=== PATIENT | male | born 2000 | race Caucasian/White ===

== ENCOUNTER 2019-10-15 11:47 | Observation (INO) ==
--- NOTE | 2019-10-15 12:55 | Emergency Department Note ---
ED Disposition Clinical Impression: Spontaneous pneumothorax Disposition: Admitted as Observation Condition on Discharge: Good Referrals: Dre Hdz MD [Primary Care Provider] - - Critical Care Critical Care Time: No Attestation: On 10/15/19, the high probability of a clinically significant, sudden or life threatening deterioration of the following system(s) required my full and direct attention, intervention and personal management. The time I documented below is in addition to time spent performing reported procedures but includes the following listed in this critical care notation. Medical Decision Making - Chi Inquiry Pt receiving controlled substance: No Vital Signs: 10/15/19 11:48 10/15/19 12:28 Temperature 98.0 F 97.8 F Temperature Source Oral Temporal Artery Scan Pulse Rate [Right Brachial] 95 H 65 Respiratory Rate 19 18 Blood Pressure [Right Arm] 112/70 105/50 L Blood Pressure Mean [Right Arm] 84 68 Blood Pressure Source [Right Arm] Automatic Cuff Automatic Cuff Blood Pressure Position [Right Arm] Sitting Sitting 02 Sat by Pulse Oximetry 100 100 Oxygen Delivery Method Room Air Room Air - Physician Consults Physician Consulted: Julee Time: 13:10 Reason -: Admission, Surgical Eval/Care Comment/Response: Discussed case. Patient is asymptomatic with normal vital signs, pulse ox 100%. X-ray shows very slight increase in the size of the pneumothorax versus difference in technique, slightly less inspiration on today's film. Dr. Ladd requests admission for observation, 6 hours of nonrebreather oxygen, the nasal cannula oxygen, repeat chest x-ray in the morning. General Adult HPI - General Chief complaint: Recheck/Abnormal Lab/Rx Stated complaint: X-Ray Time Seen by Provider: 10/15/19 12:45 Mode of Arrival: Family Vehicle Limitations: No Limitations Description of Symptoms (Recalled from ER Triage Doc. by RN): pt back for re- eval; pt had a left pneumo yesterday, small in size, that er physician states he wants to re-eval - History of Present Illness HPI narrative: The patient arrives for reevaluation of a small spontaneous left pneumothorax. Symptoms started yesterday morning and he was seen by me yesterday morning in the emergency room. Had a small apical pneumothorax. Consultation with Dr. Ladd for surgery. Patient was discharged and return for repeat x-ray 8 hours later, there was no significant change and he was asymptomatic. He returned today for a repeat x-ray and is still completely asymptomatic. - Related Data Allergies Allergy/AdvReac Type Severity Reaction Status Date / Time INGREDIENT: NO KNOWN - NO Allergy Unknown Uncoded 11/02/17 15:12 KNOWN DRUG ALLERGY [facility] History - Hepatitis A Screen Drug use history?: No High risk sexual behaviors?: No History of sexually transmitted infection?: No Currently employed?: No Childcare worker?: No Do you have indoor plumbing?: Yes Do you have electricity?: Yes Attestation statement:: This patient has been screened for Hepatitis A risk factors. I have reviewed the patient's past medical history: Yes Medical History: Denies:: Diabetes Mellitus Type 1, Diabetes Mellitus Type 2 - Social History Smoking Status: Never smoker Alcohol Intake: never Occupational Status: unemployed Housing: house ROS Obtained: Yes Systems reviewed as appropriate & no additional complaints - Constitutional Constitutional: Denies fever(s) - Cardiovascular Cardiovascular: Denies chest pain - Respiratory Respiratory: No cough, No dyspnea, No coughing up blood Physical Exam - General General appearance: alert, in no apparent distress - Head Head exam: atraumatic, normocephalic - Eye Eye exam: Present: normal appearance, EOMI - ENT ENT exam: Present: mucous membranes moist - Neck Neck exam: Present: normal inspection, full ROM - Chest Chest inspection: Present: normal inspection, symmetric chest wall rise - Respiratory Respiratory exam: Present: normal lung sounds bilaterally. Absent: respiratory distress - Cardiovascular Cardiovascular exam: Present: regular rate, normal rhythm, normal heart sounds - Abdominal Exam Abdominal exam: Present: soft. Absent: distention, tenderness - Extremities Exam Extremities exam: Present: normal inspection - Neurological Exam Neurological exam: Present: alert, oriented X3 - Psychiatric Psychiatric exam: Present: normal affect, normal mood - Skin Skin exam: Present: warm, dry
[2019-10-15 14:23] LABS: Anion Gap 10.9 mEq/L (5-15); Basophils % 0.6 % (0.1-2.0); Eosinophils # 0.2 K/mm3 (0.0-0.4); Eosinophils % 2.9 % (0.1-12.0); Hematocrit 46.5 % (42.0-52.0); Hemoglobin 14.8 g/dL (14.1-18.0); Lymphocytes # 1.6 K/mm3 (0.7-4.5); Lymphocytes % 25.6 % (10-50); Mean Corpuscular HGB Conc 31.9 g/dL (31.8-35.4); Mean Corpuscular Volume 94.9 fl (80-94); Mean Platelet Volume 8.3 fl (7.4-10.4); Monocytes # 0.4 K/mm3 (0.1-1.0); Monocytes % 6.8 % (1.7-9.3); Neutrophils # 3.9 K/mm3 (1.8-7.8); Neutrophils % 64.1 % (37.0-80.0); Platelet Count 207 K/mm3 (142-424); Red Cell Distribution Width 12.2 % (11.5-17.5); White Blood Count 6.1 K/mm3 (4.5-13.0)
--- NOTE | 2019-10-15 15:56 | History & Physical Report ---
HPI HPI: Patient is a very pleasant healthy 19-year-old non-smoking male. He states that about 2 weeks ago he had an episode of left-sided sharp chest pain which was self-limited. He did not require medical attention at that time. He had been in his usual state of health until approximately 6:30 AM yesterday at which time he experienced onset of diffuse left-sided chest pain with some associated shortness of air. He presented to the emergency department where he was seen and evaluated. His symptoms quickly resolved and he became asymptomatic. However, chest x-ray revealed a very small apical pneumothorax at that time. Patient was offered admission for observation but declined as he was asymptomatic. Surgery was contacted and recommendations were made for follow-up chest x-ray in several hours. Approximately 8 hours later patient underwent follow-up chest x-ray in the afternoon of 10/14/2019 and he had no appreciable change in the pneumothorax. Plan was made for follow-up today with repeat chest x-ray which was performed which questionably revealed slight increase in size of pneumothorax with a tiny left effusion. Patient remained asymptomatic. Given the possible increase in size of pneumothorax plan was made for admission for observation and supplemental oxygen. [facility] History I have reviewed the patient's past medical history: Yes Medical History: Denies:: Diabetes Mellitus Type 1, Diabetes Mellitus Type 2 *Have you ever received a pneumonia vaccine?: No *Have you received a flu vaccine this season?: No - *Social History Educational Level: Completed High School Smoking Status: Never smoker Alcohol Intake: never *Occupational Status:: employed Housing: house Household Members: family *Travel in the last 8 weeks: None Family Hx:: No significant family history Review of Systems - Review of Systems Review of systems:: pertinent systems reviewed and negative unless documented below Meds Allergies Allergy/AdvReac Type Severity Reaction Status Date / Time INGREDIENT: NO KNOWN - NO Allergy Unknown Uncoded 11/02/17 15:12 KNOWN DRUG ALLERGY Exam Vital signs and Labs for Last 24 Hours: Temp Pulse Resp BP Pulse Ox 97.7 F 77 16 123/81 99 10/15/19 14:47 10/15/19 14:47 10/15/19 14:47 10/15/19 14:47 10/15/19 14:51 Laboratory Results - last 24 hr 10/15/19 14:00: WBC 6.1, RBC 4.90, Hgb 14.8, Hct 46.5, MCV 94.9 H, MCH 30.3, MCHC 31.9, RDW 12.2, Plt Count 207, MPV 8.3, Neut % (Auto) 64.1, Lymph % (Auto) 25.6, [place] % (Auto) 6.8, Eos % (Auto) 2.9, Baso % (Auto) 0.6, Neut # (Auto) 3.9, Lymph # (Auto) 1.6, [place] # (Auto) 0.4, Eos # (Auto) 0.2, Baso # (Auto) 0.0 10/15/19 14:00: Sodium 142, Potassium 3.9, Chloride 104, Carbon Dioxide 31, Anion Gap 10.9, BUN 15, Creatinine 0.68 L, Estimated Creat Clear 154, Estimated GFR 149, Est GFR ( Amer) 180 D, Glucose 76, Calcium 9.0 I & O for Last 24 hours: Intake & Output 10/13/19 10/14/19 10/15/19 10/16/19 11:59 11:59 11:59 11:59 Weight 138 lb 2 oz - *Routine HEENT Exam Head: Present: normocephalic Eye: Present: EOMI, PERRL ENT: Present: mucous membranes moist - *Routine Neck Exam Present: supple. Absent: lymphadenopathy - *Routine Respiratory Exam Present: CTA bilaterally - *Routine Cardiovascular Exam Present: RRR - *Routine Abdominal Exam Present: soft, normoactive bowel sounds. Absent: tenderness - *Routine Extremities Exam Absent: cyanosis, clubbing, edema - *Routine Skin Exam Present: warm. Absent: rash - *Routine Neurological Exam Present: alert, oriented X3 - Detailed Eye Exam Eyelids: Left normal inspection Results - Results Lab Results Last 24 Hours:: Laboratory Results - last 24 hr 10/15/19 14:00: WBC 6.1, RBC 4.90, Hgb 14.8, Hct 46.5, MCV 94.9 H, MCH 30.3, MCHC 31.9, RDW 12.2, Plt Count 207, MPV 8.3, Neut % (Auto) 64.1, Lymph % (Auto) 25.6, [place] % (Auto) 6.8, Eos % (Auto) 2.9, Baso % (Auto) 0.6, Neut # (Auto) 3.9, Lymph # (Auto) 1.6, [place] # (Auto) 0.4, Eos # (Auto) 0.2, Baso # (Auto) 0.0 10/15/19 14:00: Sodium 142, Potassium 3.9, Chloride 104, Carbon Dioxide 31, Anion Gap 10.9, BUN 15, Creatinine 0.68 L, Estimated Creat Clear 154, Estimated GFR 149, Est GFR ( Amer) 180 D, Glucose 76, Calcium 9.0 Assessment and Plan - Assessment and plan all Dx Assessment and Plan for all problems:: Patient has a rather small asymptomatic spontaneous pneumothorax. At this time plan will be for continued observation without intervention with administration of supplemental oxygen. Repeat chest x-ray tomorrow morning. If there is any appreciable increase in size and/or if the patient shows symptomatology may require intervention such as thoracostomy catheter versus chest tube.
--- NOTE | 2019-10-16 07:18 | Pharmacy Consult Notes ---
[facility] Pharmacy VTE Monitoring - Patient Demographics Admission date: 10/15/19 Report Date: 10/16/19 Time: 07:18 Allergies/Adverse Reactions: Patient Allergies INGREDIENT: NO KNOWN - NO KNOWN DRUG ALLERGY Allergy (Unknown, Uncoded 11/02/17 15:12) Height: 1.83 m Weight: 62.652 kg Patient Problems: Current Active Problems Spontaneous pneumothorax (Acute) - VTE Risk Labs: VTE Related Lab Results Hgb 14.8 g/dL (14.1-18.0) 10/15/19 14:00 Hct 46.5 % (42.0-52.0) 10/15/19 14:00 Plt Count 207 K/mm3 (142-424) 10/15/19 14:00 BUN 15 mg/dL (7-18) 10/15/19 14:00 Creatinine 0.68 mg/dL (0.70-1.30) L 10/15/19 14:00 Estimated Creat Clear 154 mL/min (50-200) 10/15/19 14:00 Was VTE Risk Assessment Performed: No VTE Score: 0 VTE Risk Level: Very Low Risk - Prophylaxis VTE Prophylaxis Ordered?: Yes Types of VTE Prophylaxis: TEDS Knee High Location of Applied Device: Bilateral Lower Extremeties - VTE Diagnosis Confirmed Treatment or plan recommended: Continue Current Treatment
--- NOTE | 2019-10-16 08:45 | Progress Note ---
Subjective Patient reports: no new complaints, feels better Narrative: Patient denies shortness of breath or chest pain. Exam Vital signs and Labs for Last 24 Hours: Temp Pulse Resp BP Pulse Ox 97.6 F 82 16 110/58 L 100 10/16/19 04:00 10/16/19 04:00 10/16/19 04:00 10/16/19 04:00 10/16/19 04:00 Laboratory Results - last 24 hr 10/15/19 14:00: WBC 6.1, RBC 4.90, Hgb 14.8, Hct 46.5, MCV 94.9 H, MCH 30.3, MCHC 31.9, RDW 12.2, Plt Count 207, MPV 8.3, Neut % (Auto) 64.1, Lymph % (Auto) 25.6, [place] % (Auto) 6.8, Eos % (Auto) 2.9, Baso % (Auto) 0.6, Neut # (Auto) 3.9, Lymph # (Auto) 1.6, [place] # (Auto) 0.4, Eos # (Auto) 0.2, Baso # (Auto) 0.0 10/15/19 14:00: Sodium 142, Potassium 3.9, Chloride 104, Carbon Dioxide 31, Anion Gap 10.9, BUN 15, Creatinine 0.68 L, Estimated Creat Clear 154, Estimated GFR 149, Est GFR ( Amer) 180 D, Glucose 76, Calcium 9.0 I & O for Last 24 hours: Intake & Output 10/13/19 10/14/19 10/15/19 10/16/19 11:59 11:59 11:59 11:59 Intake Total 720 / 720 Balance 720 / 720 Weight 138 lb 2 oz - *Routine Respiratory Exam Present: CTA bilaterally Comments: Patient has equal clear breath sounds. Progress Note: A&P Assessment and Plan for All Diagnoses:: We will check results of chest x-ray this morning. Hopefully will be able to discharge with close outpatient follow-up.
--- NOTE | 2019-10-16 15:34 | Progress Note ---
Subjective Patient reports: feels better Exam Vital signs and Labs for Last 24 Hours: Temp Pulse Resp BP Pulse Ox 98.3 F 79 20 122/68 100 10/16/19 08:00 10/16/19 08:00 10/16/19 08:00 10/16/19 08:00 10/16/19 08:00 I & O for Last 24 hours: Intake & Output 10/14/19 10/15/19 10/16/19 10/17/19 11:59 11:59 11:59 11:59 Intake Total 960 / 960 620 / 620 Balance 960 / 960 620 / 620 Weight 138 lb 2 oz 138 lb 1.984 oz - Constitutional no acute distress Progress Note: A&P Assessment and Plan for All Diagnoses:: Follow-up afternoon chest x-ray reveals significant improvement in pneumothorax. Plan for discharge home.
--- NOTE | 2019-10-16 15:41 | Discharge Summary ---
General - General Admission date:: 10/15/19 Discharge date: 10/16/19 HPI HPI: Patient is a pleasant healthy non-smoking 19-year-old male. He states that in the morning of 10/14/2019 at approximately 6:30 AM he developed rather acute left-sided chest pain with radiation through to his back. He presented to the emergency department at [facility]. At this time his pain had largely resolved. He underwent chest x-ray which revealed a very small apical pneumothorax on the left. As he was asymptomatic and oxygenating well he was discharged home and followed up later that afternoon for repeat x-ray which was essentially unchanged. Plan was for follow-up for repeat chest x-ray the following morning which was done yesterday on 10/15/2019 at approximately noon. This shows some increase in the left-sided pneumothorax but still small and apical. Patient remained essentially asymptomatic. However, due to some increase in size of pneumothorax over greater than 24 hours plan was made for admission for observation. Hospital Course Hospital Course: Patient was admitted and placed on supplemental oxygen with nonrebreather for several hours. He was then transitioned to nasal cannula. Following morning on 10/16/2019 patient remained essentially asymptomatic other than some minor pressure sensation in the left chest without pain or shortness of air. Chest x- ray at that time revealed essentially stable apical pneumothorax from the day before. He was observed for the remainder of the day and had significant improvement in his symptomatology. He had equal breath sounds auscultated. In the afternoon of 10/16/2019 he underwent follow-up chest x-ray, approximately 8 hours after the morning x-ray. This revealed some appreciable improvement in the pneumothorax. Due to the improving pneumothorax and marketed symptomatic improvement in the patient plan was made for discharge home with early outpatient follow-up. Objective Vital signs: Temp Pulse Resp BP Pulse Ox 98.3 F 79 20 122/68 100 10/16/19 08:00 10/16/19 08:00 10/16/19 08:00 10/16/19 08:00 10/16/19 08:00 Discharge Plan - Patient Discharge Instructions ACTIVITY: No heavy lifting DIET: regular diet Additional Instructions: Patient to refrain from work activity this week. No heavy lifting. He is to return for outpatient chest x-ray in 48 hours. Patient Instructions: DI for Pneumothorax - Follow up Plan Follow up with: Mamadou Ladd MD [Staff Physician] - 10/20/19 Disposition: Home, Self-Fpc Medications: Home Medications Medication Instructions Recorded Confirmed Type No Known Home Medications 10/16/19 10/16/19 History Prescriptions/Medication Reconciliation: Continued No Known Home Medications - Problem Reconciliation Problems Reviewed?: Yes
== END 2019-10-16 16:14 | disposition home or self-care (01) ==
LOC: ER 11:47 → 2ND 11:47
PROVIDERS: ADMIT Surgery; ATTEND Surgery
DX: J93.11 Primary spontaneous pneumothorax
CPT/HCPCS: 71010; 71020; 71045; 71046; 80048; 85025; 99284; G0378

== ENCOUNTER → 2019-10-18 12:01 | Outpatient (CLI) | payer BC, SELFPAY ==
--- NOTE | 2019-10-18 12:11 | XR_ITS ---
PROCEDURE: XR CHEST 2V CLINICAL HISTORY: Pneumothorax Follow-up COMPARISON: XR CHEST 2V from 10/15/2019 XR CHEST PORTABLE from 10/16/2019 XR CHEST 2V from 10/16/2019 FINDINGS: Small left is once again noted. Pneumothorax appears slightly study an apical at cm previously 2 cm. The remaining lungs are clear. No acute bony anomalies. Unremarkable cardiovascular structures. IMPRESSION: Persistent but slightly decreased in size of left apical pneumothorax Dictated by: Franklin Casas MD 10/18/2019 12:37 Electronically signed by Franklin Casas MD in [place] 10/18/2019 12:37
== END ==
PROVIDERS: PCP Family Medicine; Visit Provider Surgery
DX: J93.83 Other pneumothorax (principal)
CPT/HCPCS: 71046

== ENCOUNTER → 2019-10-20 13:58 | Outpatient (CLI) | payer BC, SELFPAY ==
--- NOTE | 2019-10-20 14:02 | XR_ITS ---
PROCEDURE: XR CHEST 2V CLINICAL HISTORY: pneumothorax COMPARISON: XR CHEST PORTABLE from 10/16/2019 XR CHEST 2V from 10/16/2019 XR CHEST 2V from 10/18/2019 FINDINGS: The cardiomediastinal silhouette and pulmonary vascularity are within normal limits. A 2-3 mm tiny apical pneumothorax is still seen left side but showing marked improvement from the original studies. Both lung briones remain clear of infiltrate. IMPRESSION: Tiny apical pneumothorax remaining the left lung otherwise fully expanded against the left chest wall Dictated by: Dr. Bart Grigsby MD 10/20/2019 14:[address] Bart Grigsby MD in [place] 10/20/2019 14:27
== END ==
PROVIDERS: PCP Family Medicine; Visit Provider Surgery
DX: Z12.11 Encounter for screening for malignant neoplasm of colon (principal)
CPT/HCPCS: 71046

== ENCOUNTER → 2019-10-30 10:11 | Outpatient (CLI) | payer BC, SELFPAY ==
--- NOTE | 2019-10-30 10:13 | XR_ITS ---
PROCEDURE: XR CHEST 2V CLINICAL HISTORY: pneumothorax Follow-up pneumothorax COMPARISON: XR CHEST PORTABLE from 10/16/2019 XR CHEST 2V from 10/16/2019 XR CHEST 2V from 10/18/2019 XR CHEST 2V from 10/20/2019 FINDINGS: The cardiomediastinal silhouette and pulmonary vascularity are within normal limits. The lungs are clear without infiltrates, suspicious nodules, or pleural effusions. No evidence of residual pneumothorax No acute bony abnormalities. IMPRESSION: No evidence of pneumothorax, no acute finding Dictated by: Franklin Casas MD 10/30/2019 10:32 Electronically signed by Franklin Casas MD in [place] 10/30/2019 10:34
== END ==
PROVIDERS: PCP Family Medicine; Visit Provider Surgery
DX: Z12.11 Encounter for screening for malignant neoplasm of colon (principal)
CPT/HCPCS: 71046

== ENCOUNTER 2021-06-18 08:30 | Emergency (ER) | payer OTHER, SELFPAY ==
[2021-06-18 08:30] VITALS: BP 120/73; PULSE 78; RESP 16; TEMP 36.9; O2SAT 98; BMI 19.0
--- NOTE | 2021-06-18 08:33 | [facility].EDGENADL ---
ED Disposition Clinical Impression: Laceration of thumb Qualifiers: Encounter type: initial encounter Damage to nail status: with damage Foreign body presence: without foreign body Laterality: right Qualified Code(s): S61.111A - Laceration without foreign body of right thumb with damage to nail, initial encounter Avulsion fracture of phalanx of right thumb Qualifiers: Encounter type: initial encounter Fracture type: open Qualified Code(s): S62.501B - Fracture of unspecified phalanx of right thumb, initial encounter for open fracture Disposition: Home, Self-Care Condition on Discharge: Good Instructions: DI for Finger Fracture Referrals: Provider,Referral, MD [Primary Care Provider] - 3 days Time of Disposition: :31 - Critical Care Critical Care Time: No Attestation: On , the high probability of a clinically significant, sudden or life threatening deterioration of the following system(s) required my full and direct attention, intervention and personal management. The time I documented below is in addition to time spent performing reported procedures but includes the following listed in this critical care notation. Medical Decision Making - Medical Records Medical records reviewed: Yes: I reviewed the patient's medical records. - Chi Inquiry Pt receiving controlled substance: No Vital Signs: 06/18/21 08:30 Temperature 98.4 F Temperature Source Oral Pulse Rate [Right] 78 Respiratory Rate 16 Blood Pressure [Right Arm] 120/73 Blood Pressure Mean [Right Arm] 88 02 Sat by Pulse Oximetry 98 Oxygen Delivery Method Room Air Orders (Tests/Meds): ED MEDICATIONS Discontinued Medications Generic Name Dose Route Start Last Admin Trade Name Freq PRN Reason Stop Dose Admin Tetanus/Reduced Diphtheria/Acell Pertussis 0.5 ml 06/18/21 09:24 Tet/Diphth/Pert-Adult 0.5ml Syringe IM 06/18/21 09:25 .ONCE ONE Trimethoprim/Sulfamethoxazole 1 each 06/18/21 09:24 Sulfa/Trimethoprim 1 Tablet PO 06/18/21 09:25 ONCE ONE Protocol ORDERS Category Date Time Status Finger XR right minimum 2 views [XR finger RT min 2V] Exams 06/18/21 08:36 Taken Stat - Radiology Data #1 Image(s): Other Image Reviewed: Yes I reviewed the patient's radiology image Preliminary Findings: Abnormal likely small distal avulsion of distal phalanx of thumb Medical Decision Narrative: 20yo M evaluated for injury to his right thumb. Patient sent for x-ray. Likely distal avulsion injury on my wet read. See procedure note for details of repair. Patient tolerated procedure well. Employer workplace injury paperwork completed. Patient to follow-up with PCP/Ortho the end of this week. Provided Bactrim in the emergency department as well as a prescription. Also provided short prescription for pain medication. Tetanus updated in the emergency department. Discharged home in stable condition. General Adult HPI - General Stated complaint: injury WC Time Seen by Provider: 06/18/21 08:33 Mode of Arrival: EMS Source of Information: Patient - History of Present Illness HPI narrative: 20yo M without significant past medical history reports the emergency department after workplace injury immediately prior to arrival. Patient is right-hand dominant. Reports getting his right thumb caught in the machine. No other injury. Reports being up-to-date on immunizations through high school. - Related Data Home Medications Medication Instructions Recorded Confirmed No Known Home Medications 10/16/19 10/30/19 Allergies Allergy/AdvReac Type Severity Reaction Status Date / Time No Known Allergies Allergy Verified 06/18/21 08:38 [facility] History - Hepatitis A Screen Drug use history?: No Attestation statement:: This patient has been screened for Hepatitis A risk factors. I have reviewed the patient's past medical history: Yes Medical History: Denies:: Diabetes Mellitus Type 1, Diabetes
--- NOTE | 2021-06-18 08:36 | XR_ITS ---
PROCEDURE: XR FINGER RT MIN 2V CLINICAL INDICATION: trauma Pain, laceration COMPARISON: No exams were available for comparison FINDINGS: There is minimally distracted avulsion fracture involving the tip of the distal phalanx of the thumb associated with laceration. The joint spaces are well-preserved. No significant degenerative/arthritic changes. No erosive changes evident. Other findings:None. IMPRESSION: Open avulsion fracture of the tip of the distal phalanx of the thumb Dictated by: Franklin Casas MD 06/18/2021 10:01 Franklin Casas MD in [place] 06/18/2021 10:01
--- NOTE | 2021-06-18 08:56 | PC.NURSE ---
back from MD ishaan with pt
--- NOTE | 2021-06-18 09:03 | PC.NURSE ---
Dr. Hines at bedside cleaning wound.
[2021-06-18 09:55] VITALS: BP 124/82; PULSE 79; RESP 16; TEMP 36.9; O2SAT 99
== END 2021-06-18 10:00 | disposition home or self-care (01) ==
PROVIDERS: Emergency Provider Family Medicine
DX: S61.111A Laceration without foreign body of right thumb with damage to nail, initial encounter (principal); S62.501B Fracture of unspecified phalanx of right thumb, initial encounter for open fracture; W31.9XXA Contact with unspecified machinery, initial encounter; Y92.69 Other specified industrial and construction area as the place of occurrence of the external cause; Y99.0 Civilian activity done for income or pay; Z23 Encounter for immunization
CPT/HCPCS: 12002; 73140; 90715; 96372; 99282

== ENCOUNTER → 2021-07-09 09:45 | Outpatient (CLI) | payer OTHER, SELFPAY ==
--- NOTE | 2021-07-09 09:49 | XR_ITS ---
PROCEDURE: XR FINGER RT MIN 2V CLINICAL INDICATION: right THUMB fracture COMPARISON: CR XR FINGER RT MIN 2V from 06/18/2021 FINDINGS: There is avulsion fracture involving the tip of the 1st distal phalanx. There is only minimal distraction of the fracture fragments there are faint small opacities within or on the soft tissues at the thumb and could be related to foreign bodies. Small amount of air is noted in the subungual region of the thumb a. soft tissue gas is decreased compared to the previous exam. No definite bony erosive process. The joint spaces are well-preserved. No significant degenerative/arthritic changes. No erosive changes evident. Other findings:None. IMPRESSION: Nondisplaced avulsion fracture of the 1st distal phalanx as described above with suggestion of foreign bodies. Small amount of sub ungual air decreased from the previous exam Dictated by: Franklin Casas MD 07/09/2021 12:27 Franklin Casas MD in [place] 07/09/2021 12:27
== END ==
PROVIDERS: Visit Provider Orthopaedic Surgery
DX: S62.501A Fracture of unspecified phalanx of right thumb, initial encounter for closed fracture (principal)
CPT/HCPCS: 73140

== ENCOUNTER → 2021-08-13 10:22 | Outpatient (CLI) | payer BC, SELFPAY ==
--- NOTE | 2021-08-13 10:26 | XR_ITS ---
PROCEDURE: XR FINGER RT MIN 2V CLINICAL INDICATION: right thumb fracture COMPARISON: CR XR FINGER RT MIN 2V from 06/18/2021 CR XR FINGER RT MIN 2V from 07/09/2021 FINDINGS: Healing fracture involves the of the distal phalanx of the thumb. Fracture line is less visible. There is dimpling of the skin dorsally at this region consistent with some scarring. The joint spaces are well-preserved. No significant degenerative/arthritic changes. No erosive changes evident. Other findings:Tiny density noted along the distal and palmar aspect of the distal phalanx consistent with a small foreign body similar to the previous exam. The foreign body noted in the subcutaneous region no longer apparent. IMPRESSION: Healing tuft fracture of the distal phalanx of thumb Dictated by: Franklin Casas MD 08/13/2021 12:42 Franklin Casas MD in [facility] 08/13/2021 12:42
== END ==
PROVIDERS: Visit Provider Orthopaedic Surgery
DX: S62.501B Fracture of unspecified phalanx of right thumb, initial encounter for open fracture (principal)
CPT/HCPCS: 73140

== ENCOUNTER → 2023-04-14 23:11 | Outpatient (CLI) | payer BC, SELFPAY | PROVIDERS: PCP Nurse Practitioner Family; Visit Provider Nurse Practitioner Family | DX: J02.9 Acute pharyngitis, unspecified (principal) ==

== ENCOUNTER → 2023-04-19 14:04 | Outpatient (CLI) | payer BC, SELFPAY ==
[2023-04-19 18:05] LABS: Alanine Aminotransferase 28 U/L (12-78); Albumin Level 4.8 g/dl (3.5-5.0); Albumin/Globulin Ratio 2.2 (1.1-1.8); Alkaline Phosphatase 65 U/L (38-126); Anion Gap 14.3 mEq/L (5-15); Aspartate Amino Transferase 34 U/L (17-59); Bilirubin,Total 0.6 mg/dl (0.2-1.3); Blood Urea Nitrogen 12 mg/dl (9-20); Calcium 9.4 mg/dl (8.4-10.2); Carbon Dioxide 30 mmol/L (22.0-30.0); Chloride 105 mmol/L (98-107); Estimated Glomerular Filt Rate 140 ml/min (>60); GFR (African American) 169 ML/MIN (>60); Globulin 2.2 g/dL (1.3-3.2); Glucose 76 mg/dl (74-100); Potassium 4.3 mmoL/L (3.5-5.1); Sodium 145 mmol/L (136-145)
[2023-04-19 18:22] LABS: 25-OH Vitamin D, Total 36.3 ng/mL (30-100)
[2023-04-19 18:25] LABS: Monoscreen (Rapid) Negative (Negative)
[2023-04-19 18:41] LABS: Basophils % 0.4 % (0.1-2.0); Eosinophils # 0.2 K/mm3 (0.0-0.4); Eosinophils % 3.9 % (0.1-12.0); Hematocrit 41.8 % (42.0-52.0); Hemoglobin 13.7 g/dL (14.1-18.0); Lymphocytes # 1.7 K/mm3 (0.7-4.5); Lymphocytes % 33.3 % (10-50); Mean Corpuscular HGB Conc 32.8 g/dL (31.8-35.4); Mean Corpuscular Hemoglobin 30.5 pg (27.0-31.2); Mean Platelet Volume 8.1 fl (7.4-10.4); Monocytes # 0.3 K/mm3 (0.1-1.0); Monocytes % 5.8 % (1.7-9.3); Neutrophils # 2.8 K/mm3 (1.8-7.8); Neutrophils % 56.7 % (37.0-80.0); Platelet Count 197 K/mm3 (142-424); Red Blood Count 4.49 M/mm3 (4.60-6.20); Red Cell Distribution Width 12.5 % (11.5-17.5)
== END ==
PROVIDERS: PCP Student in an Organized Health Care Education/Training Program; Visit Provider Student in an Organized Health Care Education/Training Program
DX: J02.9 Acute pharyngitis, unspecified (principal); E55.9 Vitamin D deficiency, unspecified; Z13.29 Encounter for screening for other suspected endocrine disorder
CPT/HCPCS: 80053; 82306; 84443; 85025; 86318; 87070

== ENCOUNTER → 2023-05-11 10:30 | Outpatient (CLI) | payer BC, SELFPAY ==
[2023-05-11 19:37] LABS: Vitamin B12 644 pg/mL (239-931)
[2023-05-11 20:22] LABS: Iron 232 ug/dL (49-181)
[2023-05-11 20:31] LABS: Total Iron Binding Capacity 324 ug/dL (261-462)
[2023-05-11 20:37] LABS: Basophils % 0.5 % (0.1-2.0); Eosinophils # 0.2 K/mm3 (0.0-0.4); Hematocrit 47.6 % (42.0-52.0); Hemoglobin 15.3 g/dL (14.1-18.0); Lymphocytes # 1.7 K/mm3 (0.7-4.5); Lymphocytes % 33.4 % (10-50); Mean Corpuscular HGB Conc 32.1 g/dL (31.8-35.4); Mean Corpuscular Hemoglobin 30.4 pg (27.0-31.2); Mean Corpuscular Volume 94.7 fl (80-94); Mean Platelet Volume 9.6 fl (7.4-10.4); Monocytes # 0.3 K/mm3 (0.1-1.0); Neutrophils # 2.9 K/mm3 (1.8-7.8); Neutrophils % 57.1 % (37.0-80.0); Platelet Count 194 K/mm3 (142-424); Red Blood Count 5.03 M/mm3 (4.60-6.20); White Blood Count 5.2 K/mm3 (4.8-10.8)
== END ==
PROVIDERS: PCP Student in an Organized Health Care Education/Training Program; Visit Provider Student in an Organized Health Care Education/Training Program
DX: R06.00 Dyspnea, unspecified (principal); R22.1 Localized swelling, mass and lump, neck; Z13.21 Encounter for screening for nutritional disorder
CPT/HCPCS: 82607; 82746; 83540; 83550; 85025

== ENCOUNTER → 2023-05-31 07:42 | Outpatient (CLI) | payer BC, SELFPAY ==
--- NOTE | 2023-05-31 07:54 | CT_ITS ---
FINAL REPORT TECHNIQUE: Thin section axial CT images with coronal and sagittal reformats were performed through the neck. This study was performed with techniques to keep radiation doses as low as reasonably achievable (ALARA). Individualized dose reduction techniques using automated exposure control or adjustment of mA and/or kV according to the patient''s size were employed. CLINICAL HISTORY: uvulitis, sore throat FINDINGS: Exam is limited without intravenous contrast. The nasopharynx, oropharynx, epiglottis and larynx are without acute abnormality. Thyroid is homogeneous. Salivary glands are unremarkable. A soft tissue nodule is seen measuring 14 mm, along the superior surface of the right masseter muscle, etiology unclear. There is no lymphadenopathy. Limited evaluation of the upper lungs is without acute abnormality. There is mild mucoperiosteal thickening of the floor of the right maxillary sinus. No air-fluid levels are identified. Remaining paranasal sinuses are clear. Mastoids are clear. There is no acute osseous abnormality. IMPRESSION: Limited exam without intravenous contrast. Small soft tissue nodule overlying the right masseter muscle, etiology unclear. Otherwise, no acute process on this unenhanced exam. Reviewed, Interpreted and Dictated by Marian Smith MD Transcribed by Margie Campos Authenticated and [facility]
== END ==
PROVIDERS: PCP Student in an Organized Health Care Education/Training Program; Visit Provider Nurse Practitioner
DX: K12.2 Cellulitis and abscess of mouth (principal)
CPT/HCPCS: 70490

== ENCOUNTER 2023-07-03 21:33 | Emergency (ER) | payer BC, SELFPAY ==
[2023-07-03 21:34] VITALS: BP 129/64; PULSE 81; RESP 20; TEMP 36.9; O2SAT 100; BMI 19.0
[2023-07-03 21:43] VITALS: BP 129/64; PULSE 84; O2SAT 100
[2023-07-03 21:54] LABS: Coronavirus 19, PCR Not Detected (NotDetected); Influenza A, PCR Not Detected (NotDetected); Influenza B, PCR Not Detected (NotDetected)
[2023-07-03 22:00] VITALS: BP 131/65; PULSE 84; O2SAT 100
--- NOTE | 2023-07-03 22:01 | CT_ITS ---
PROCEDURE INFORMATION: Exam: CT Neck With Contrast Exam date and time: 07/03/2023 10:56 PM Age: 22 years old Clinical indication: Throat pain; Additional info: HX uvulitis, throat pain TECHNIQUE: Imaging protocol: Computed tomography of the neck with contrast. Radiation optimization: All CT scans at this facility use at least one of these dose optimization techniques: automated exposure control; mA and/or kV adjustment per patient size (includes targeted exams where dose is matched to clinical indication); or iterative reconstruction. Contrast material: ISOVUE; Contrast volume: 75 ml; Contrast route: IV; REPORTING DATA: Count of CT and Cardiac NM exams in prior 12 months: This patient has received [address] and 0 known cardiac nuclear medicine studies in the 12 months prior to the current study. COMPARISON: CT SOFT TISSUE NECK WO CON 05/31/2023 8:00 AM FINDINGS: Paranasal sinuses: Small right maxillary sinus mucous retention cysts. Pharynx: Enlargement of the adenoid tonsils. Mildly swollen uvula. Larynx: Unremarkable. Epiglottis is normal. Prevertebral and retropharyngeal spaces: Unremarkable. Salivary glands: Normal. Glands are normal in size. Thyroid: Normal. No enlarged or calcified nodules. Lymph nodes: Unremarkable. No lymphadenopathy. Trachea: Visualized trachea is unremarkable. Lungs: Unremarkable as visualized. Pleural spaces: Mild biapical pleural-parenchymal scarring. Bones/joints: Unremarkable. No acute fracture. Soft tissues: Unremarkable. No significant soft tissue swelling. IMPRESSION: Findings compatible with uvulitis and adenoiditis.
--- NOTE | 2023-07-03 22:06 | HMH.EDGENADL ---
Discharge Plan Disposition Patient Disposition: Home, Self-Care Condition: Good Prescriptions Prescriptions: New amoxicillin-pot clavulanate 875-125 mg tablet 1 tab PO BID Qty: 20 0RF prednisone 50 mg tablet 50 mg PO DAILY 3 Days Qty: 3 0RF No Action fluticasone propionate [Allergy Relief (fluticasone)] 50 mcg/actuation spray,suspension 1 spray intranasal DAILY Qty: 16 2RF Rx Instructions: administer into each nostril methylprednisolone [Medrol (Leon)] 4 mg tablets,dose pack See Rx Instructions PO PER PKG DIR Qty: 21 0RF Rx Instructions: PO PER PKG DIR Referrals Follow up/Referrals: Saji Rodriguez MD [Primary Care Provider] - See instructions Edgardo Agee III, MD [Staff Physician] - See instructions Activity Restrictions/Add. Instructions Additional Instructions/Restrictions: At this time was felt you are safe to be discharged home. If new or worsening symptoms please do not hesitate to return the emergency department. Please take your medications as prescribed. Please purchase [id number] loratadine or fexofenadine as an antihistamine to take daily. Clinical Impressions Clinical Impression: Pain in throat, Uvulitis, Adenoiditis Discharge ED Provider: Mane Sal General Adult HPI General Chief complaint: Upper Respiratory Infection Stated complaint: sore throat Time Seen by Provider: 07/03/23 21:49 Mode of Arrival: Ambulatory Source of Information: Patient Limitations: No Limitations Description of Symptoms (Recalled from ER Triage Doc. by RN): Dx with uvulitis a month ago started amox. antibiotic finished antibiotic. Continues with sore throat. History of Present Illness HPI narrative: Patient is 22-year-old male with past medical history of uvulitis status post multiple courses of antibiotics who presents emergency department for evaluation of throat pain and chronic throat clearing. Patient states that over the last 24 hours he has been clearing his throat with green sputum. He feels that his throat is sore and has abnormal sensation in the back of his throat consistent with when he had uvulitis previously. He has adequate p.o. intake. No sick contacts. No drooling. No difficulty phonating. No other acute complaints at this time. Related Data Previous Rx's Medication Instructions Recorded fluticasone propionate 50 1 spray intranasal DAILY #16 grams 04/19/23 mcg/actuation nasal spray,suspension (Allergy Relief (fluticasone)) methylprednisolone 4 mg tablets in See Rx Instructions PO PER PKG DIR 05/17/23 a dose pack (Medrol (Leon)) #21 tabs amoxicillin 875 mg-potassium 1 tab PO BID #20 tabs 07/04/23 clavulanate 125 mg tablet prednisone 50 mg tablet 50 mg PO DAILY 3 days #3 tabs 07/04/23 Allergies Allergy/AdvReac Type Severity Reaction Status Date / Time No Known Allergies Allergy Verified 05/17/23 11:06 [facility] Disclaimer: The information contained in this section may have been updated after the patient was seen, as this information can be updated by other users. Medical History (Updated 07/03/23 @ 23:56 by Mane Sal MD) Uvulitis Social History Smoking Status: Never smoker second hand exposure: No alcohol intake: never current occupational status: employed Travel in the last 8 weeks: None household members: family housing: house current occupational exposures/hazards: No ROS Obtained: Yes Systems reviewed as appropriate & no additional complaints except as documented Physical Exam General General appearance: alert and in no apparent distress Head Head exam: atraumatic and normocephalic Eye Eye exam: Present PERRL and EOMI ENT ENT exam: Present mucous membranes moist and other (Mildly swollen uvula that is midline, no purulence, erythematous posterior oropharynx) Neck Neck exam: Present normal inspection Chest Chest inspection: Present n
[2023-07-03 22:20] LABS: Basophils % 0.3 % (0.1-2.0); Eosinophils # 0.2 K/mm3 (0.0-0.4); Eosinophils % 2.4 % (0.1-12.0); Hematocrit 45.5 % (42.0-52.0); Hemoglobin 14.5 g/dL (14.1-18.0); Lymphocytes # 1.3 K/mm3 (0.7-4.5); Lymphocytes % 12.9 % (10-50); Mean Corpuscular HGB Conc 31.9 g/dL (31.8-35.4); Mean Corpuscular Hemoglobin 30.7 pg (27.0-31.2); Mean Corpuscular Volume 96.1 fl (80-94); Mean Platelet Volume 8.1 fl (7.4-10.4); Monocytes # 0.6 K/mm3 (0.1-1.0); Monocytes % 6.4 % (1.7-9.3); Neutrophils # 7.9 K/mm3 (1.8-7.8); Neutrophils % 78.1 % (37.0-80.0); Platelet Count 178 K/mm3 (142-424); Red Blood Count 4.73 M/mm3 (4.60-6.20); Red Cell Distribution Width 12.7 % (11.5-17.5); White Blood Count 10.1 K/mm3 (4.8-10.8)
[2023-07-03 22:21] LABS: Strep Scrn Group A (Rapid) Negative (Negative)
[2023-07-03 22:30] VITALS: BP 138/65; PULSE 78; O2SAT 100
[2023-07-03 22:34] LABS: Chloride 104 mmol/L (98-107); Sodium 142 mmol/L (136-145)
[2023-07-03 22:37] LABS: Blood Urea Nitrogen 19 mg/dl (9-20); Carbon Dioxide 29 mmol/L (22.0-30.0); Creatinine Clearance Estimated 147 mL/min (50-200); Estimated Glomerular Filt Rate 140 ml/min (>60); GFR (African American) 169 ML/MIN (>60)
[2023-07-03 22:38] LABS: Calcium 9.7 mg/dl (8.4-10.2); Glucose 98 mg/dl (74-100)
--- NOTE | 2023-07-03 23:15 | PC.NURSE ---
Pt provided with another warm blanket.
[2023-07-04 00:31] VITALS: BP 105/56; PULSE 72; RESP 16; TEMP 36.5; O2SAT 98
== END 2023-07-04 00:35 | disposition home or self-care (01) ==
PROVIDERS: Emergency Provider Emergency Medicine; PCP Family Medicine
DX: J02.9 Acute pharyngitis, unspecified (principal); J35.02 Chronic adenoiditis
CPT/HCPCS: 70491; 80048; 85025; 86140; 87430; 87636; 96374; 99285; Q9967

== ENCOUNTER 2025-08-01 16:49 | Emergency (ER) | payer OTHER, SELFPAY ==
[2025-08-01 17:10] VITALS: BP 128/72; PULSE 85; RESP 20; TEMP 36.6; O2SAT 97; BMI 20.9
--- NOTE | 2025-08-01 17:47 | [facility].EDGENADL ---
Discharge Plan Disposition Patient Disposition: Home, Self-Care Condition: Good Prescriptions Prescriptions: No Action fluticasone propionate [Allergy Relief (fluticasone)] 50 mcg/actuation spray,suspension 1 spray intranasal DAILY Qty: 16 2RF Rx Instructions: administer into each nostril methylprednisolone [Medrol (Leon)] 4 mg tablets,dose pack See Rx Instructions PO PER PKG DIR Qty: 21 0RF Rx Instructions: PO PER PKG DIR amoxicillin-pot clavulanate 875-125 mg tablet 1 tab PO BID Qty: 20 0RF prednisone 50 mg tablet 50 mg PO DAILY 3 Days Qty: 3 0RF Referrals Follow up/Referrals: Provider,Referral, MD [Primary Care Provider, Medical] - See instructions Activity Restrictions/Add. Instructions Additional Instructions/Restrictions: You were evaluated on an emergency basis. It is very important that you follow-up with your primary care provider and any specialist who we discussed within the next 2 days in order to better assess your health more comprehensively. For example, incidental findings on imaging or laboratory results that were performed today may be discovered, which do not require immediate medical care, but may impact your health in the future. If your symptoms worsen or persist, please return to the emergency department immediately for reassessment. Take all medications as prescribed. In queue for allowing me to participate in your health care, and I hope you feel better soon. Clinical Impressions Clinical Impression: Superficial abrasion Instructions Patient Instructions: DI for Abrasion Print Language Print Language: [place]uran Discharge ED Provider: Katelynn Saldana General Adult HPI General Chief complaint: Neuro Symptoms/Deficit Stated complaint: AO 08-01 poke from karen nail in left hand Time Seen by Provider: 08/01/25 17:47 Mode of Arrival: Ambulatory Source of Information: Patient Description of Symptoms (Recalled from ER Triage Doc. by RN): Pt states he was at work lifting wood that had nails in it. Pt states he did not break the skin with the nails, but was drivinig home when his body felt like it locked up. Pt felt numbess in both legs, shortness of breath, and fatigue. History of Present Illness HPI narrative: 24-year-old male presents emergency department after having the palm of his left hand scratched by a nail while at work earlier today. He states on the way home he started feeling some numbness/fatigue and was concerned that he may have developed tetanus. Related Data Previous Rx's ?Medication ?Instructions ?Recorded fluticasone propionate 50 1 spray intranasal DAILY #16 grams 04/19/23 mcg/actuation nasal spray,suspension (Allergy Relief (fluticasone)) methylprednisolone 4 mg tablets in See Rx Instructions PO PER PKG DIR 05/17/23 a dose pack (Medrol (Leon)) #21 tabs amoxicillin 875 mg-potassium 1 tab PO BID #20 tabs 07/04/23 clavulanate 125 mg tablet prednisone 50 mg tablet 50 mg PO DAILY 3 days #3 tabs 07/04/23 Allergies Allergy/AdvReac Type Severity Reaction Status Date / Time No Known Allergies Allergy Verified 05/17/23 11:06 [facility] Disclaimer: The information contained in this section may have been updated after the patient was seen, as this information can be updated by other users. Medical History (Updated 08/01/25 @ 18:14 by Mary Beth Hernandez) Uvulitis Social History Smoking Status: Never smoker second hand exposure: No alcohol intake: never current occupational status: employed Travel in the last 8 weeks?: None household members: family housing: house current occupational exposures/hazards: No Have you lived/traveled outside [place] in past 30 days?: No Contact w/someone who lives/traveled outside [place] past 30 days?: No Exposure to someone with infectious disease in past 14 days?: No Do you have a fever (greater than 100.4 F or 38 C)?: No Have you tested positive for COVID-19?: No Exposed to someone with COVID-19 in past 14 days?: No Do you have a sore throat?: No Do you have a cough?: No Do you have any weakness?: No Do you have any diarrhea?: No Are you experiencing any unusual bleeding?: No Do you have any muscle aches/pain?: No Do you have any abdominal pain?: No Are you experiencing loss of taste or smell?: No Other Medical History Have you received the Flu Vaccine for this season: No Have you received the Pneumonia Vaccine: No ROS Obtained: Yes other Constitutional Constitutional: Reports fatigue Musculoskeletal Musculoskeletal: Reports tingling Neurologic Neurologic: Reports tingling Endocrine Endocrine: Reports fatigue Physical Exam Narrative Physical exam: General: Awake, aware, in no acute distress HEENT: Normal cephalic, no evidence of trauma CV: RRR, no murmurs, rubs, or gallops Pulm: CTA bilaterally with no rhonchi, rales, or wheezes ABD: Nontender, no swelling, guarding, or rebound Neuro: ANO x 4, GCS 15, no focal deficits noted. Sensations intact with 2+ pulses all extremities as well as 5 out of 5 strength. Psych: Appropriate mood and affect Skin: Patient has a very small superficial scratch to the palm of his left hand. No bleeding/drainage or surrounding erythema noted. General General appearance: alert Respiratory Respiratory exam: Present normal lung sounds bilaterally Cardiovascular Cardiovascular exam: Present regular rate Neurological Exam Neurological exam: Present alert Medical Decision Making Medical Records Screening: Per USPSTF and CDC recommendations, given the prevalence of disease in our region, it is our hospital?s policy to screen for HIV and viral Hepatitis for all patients aged 18 and over and those with ongoing risk factors. Chi Inquiry Pt receiving controlled substance: No Vital Signs: 08/01/25 17:10 Temperature 97.9 F Temperature Source Temporal Artery Scan Pulse Rate [Right] 85 Respiratory Rate 20 Blood Pressure [Right Arm] 128/72 Blood Pressure Mean [Right Arm] 90 Blood Pressure Source [Right Arm] Automatic Cuff Blood Pressure Position [Right Arm] Sitting 02 Sat by Pulse Oximetry 97 Oxygen Delivery Method Room Air Orders (Tests/Meds): ED MEDICATIONS Discontinued Medications Generic Name Dose Route Start Last Admin Trade Name Freq PRN Reason Stop Dose Admin Tetanus/Reduced Diphtheria/Acell Pertussis 0.5 ml 08/01/25 17:55 Tet/Diphth/Pert-Adult 0.5ml Syringe IM 08/01/25 17:56 .ONCE ONE Medical Decision Narrative: Initial impression of presenting illness: 24-year-old male presents emergency department for evaluation after being scratched by a nail on his left hand while at work earlier today. He states he is unsure when his last tetanus booster was. Reports on the way home this evening he started to feel fatigue with numbness and was concerned that he had developed tetanus. Differential diagnosis includes but is not limited to: Anxiety, puncture, laceration Patient arrives hemodynamically stable, afebrile, without respiratory distress with vital signs interpreted by myself. Initial physical exam reveals a very small superficial scratch to the palm of the left hand. No bleeding, drainage, surrounding cellulitis present. Patient is intact with 2+ pulses in all extremities as well as 5 out of 5 strength. Rest of exam is unremarkable Initial diagnostic plan: Adacel booster Disposition: Advised patient that we will booster his tetanus today. Encouraged him to keep his wound clean and dry May use Tylenol and ibuprofen as needed for pain control. Instructed him to follow-up with his primary care provider or return to the emergency department any new or worsening symptoms. Is agreeable to plan of care. Critical Care Critical Care Time Critical Care Time: No
[2025-08-01 18:24] VITALS: BP 135/75; PULSE 75; RESP 15; TEMP 37; O2SAT 99
[2025-08-01] MEDS: TET/DIPHTH/PERT-ADULT 0.5ML SYRINGE 0.5 ML IM (18:25)
== END 2025-08-01 18:28 | disposition home or self-care (01) ==
PROVIDERS: Emergency Provider Student in an Organized Health Care Education/Training Program
DX: S60.512A Abrasion of left hand, initial encounter (principal); W22.8XXA Striking against or struck by other objects, initial encounter
CPT/HCPCS: 90471; 90715; 99283; 99284